=== PATIENT | female | born 1980 | race Caucasian/White ===

== ENCOUNTER 2018-09-05 15:17 | Emergency (ER) | payer MEDICAID, SELFPAY ==
[2018-09-05 15:18] VITALS: BP 111/63; PULSE 96; RESP 16; TEMP 36.8; O2SAT 98; BMI 25.6
[2018-09-05] MEDS: Ibuprofen 600 MG Tablet PO (15:41)
--- NOTE | 2018-09-05 16:03 | ED.VISSUMM ---
- ER Visit Summary Date of Service: 09/05/18 Chief Complaint: [Sore throat and body aches] History of Present Illness: The patient is a 38 F [present to the emergency department stating that she has not been feeling well since yesterday. Patient dates she hurts all over. She has not had a cough. She denies urinary symptoms. She had subjective fever at home. Patient also states that she has had a wound to her right ankle for about a week that she believes was related to a mosquito bite that she scratched. Patient denies any sick contacts.] Physical Examination: [HEENT-PERRLA, EOMI. Cranial nerves II through XII grossly intact. TMs clear. Mucous membranes moist. Patient has pharyngeal erythema with exudates noted. Patient does have anterior adenopathy. Cardiovascular-regular rate and rhythm without murmur or ectopy Lungs-clear to auscultation, chest wall stable without crepitus or subcu emphysema Abdomen-normoactive bowel sounds, soft, nontender, no rebound or rigidity, no peritoneal signs. Extremities-intact ?4, normal range of motion, normal pulses. Right ankle-over the area of the lateral malleolus is a small 2 cm round excoriated lesion with some faint erythema noted around it and small amount of drainage. No lymphangitic streaking.] Test Results: [Rapid strep screen was positive.] Emergency Department Course and Treatment: [She was started on clindamycin given that she is pen allergic] Treatment Plan: [Patient will be treated with clindamycin. Advised to follow-up with primary care physician 5 to 7 days.] Disposition: [Discharged home stable condition] Impression: [Pharyngitis Cellulitis right ankle] This note was generated with [employer] dictation software. It may contain incorrect words, spelling, and punctuation that were not noted in review of the chart prior to signing ED Disposition - Plan for ED Patient: Referrals: Ayad Pedro III, MD [Primary Care Provider] -
--- NOTE | 2018-09-05 16:03 | ED.RN ---
dr. quiles informed of pt being strep positive.
--- NOTE | 2018-09-05 16:05 | ED.DEP ---
ED Disposition - Plan for ED Patient: Instructions: Strep Throat, Cellulitis Prescriptions: Clindamycin HCl [Cleocin] 300 mg PO Q6H #40 cap Prescription Printed Referrals: Ayad Pedro III, MD [Primary Care Provider] - 5-7 Days
[2018-09-05] MEDS: Clindamycin HCl 150 MG Capsule 300 MG PO (16:30)
== END 2018-09-05 16:36 | disposition home or self-care (01) ==
LOC: ED 15:48
PROVIDERS: Emergency Provider Emergency Medicine; Family Provider Family Medicine; PCP Family Medicine
DX: J02.0 Streptococcal pharyngitis (principal); L03.115 Cellulitis of right lower limb
CPT/HCPCS: 87077; 87880; 99284